=== PATIENT | female | born 1975 | race Caucasian/White ===

== ENCOUNTER → 2016-09-17 | Outpatient (CLI) | payer OTHER ==
[~2016-09-17] MED LIST: DOCUSATE SODIU100 MG PO; ENDOCET 5-3251 EACH PO; MORPHINE SULFAT15 MG PO; MOTRIN800 MG PO; OPANA10 MG PO; PERCOCET 5-3251 EACH PO; PRENATAL TABLE1 EAC3 PO
== END | disposition home or self-care (01) ==
LOC: AMB 09-10 14:00
DX: D22.61 Melanocytic nevi of right upper limb, including shoulder (principal); L91.8 Other hypertrophic disorders of the skin
CPT/HCPCS: 88305